=== PATIENT | male | born 1960 | race Caucasian/White ===

== ENCOUNTER 2017-08-18 07:37 | Outpatient (CLI) | payer OTHER ==
--- NOTE | 2017-08-18 18:17 | MRI Report ---
EXAM: MRI LUMBAR SPINE WITHOUT CONTRAST EXAM DATE: 08/18/2017 08:28 AM. CLINICAL HISTORY: Radiculopathy, lumbar region. 57-year-old male with low back pain radiating to the left leg for 6 weeks. Left thigh and christian numbness. COMPARISON: None. TECHNIQUE: Multiplanar, multisequence T1-weighted and fluid-sensitive sequences of the lumbar spine f rom T12 to S1 without contrast. Other: None. FINDINGS: Spinal Cord: The conus terminates at L1. The conus medullaris and cauda equina are unremarkable. Alignment: No scoliosis or spondylolisthesis. Bone Marrow: Five [id number] lumbar vertebral bodies are assumed. S1 vertebral body 2.1 cm heman gioma. Disk Levels/Facets: T12-L1: Unremarkable. L1-L2: Unremarkable. L2-L3: Unremarkable. L3-L4: Left lateral broad 3 mm disk protrusion. Mild ligamentum flavum thickening. Central posterior 2 mm disk protrusion. Mild facet joint arthrosis. Left ventral epidural mid and inferior L3 vertebral body extruded disk fragment, 1.1 cm in transverse dimension, 6 mm in AP dimension and 1.3 cm in heig ht, which extends from the left L3 lateral recess to the left L3-L4 neural foramen entry zone. Imping ement is noted of the left descending L3 nerve root. Compression of the left anterolateral thecal sac without central spinal canal stenosis. Mild right foraminal stenosis. L4-L5: Severe disk degeneration. Left L4 laminectomy. Negative for central spinal canal stenosis. Mod erate bilateral lateral recess stenosis from ligamentum flavum thickening and facet hypertrophy. Mild bilateral foraminal stenosis from a foraminal disk bulge osteophyte complex and disk degeneration. L eft facetectomy. L5-S1: Left laminectomy. Left facetectomy. Negative for left foraminal stenosis. Mild right foraminal stenosis from facet hypertrophy and a 2 mm foraminal disk protrusion osteophyte complex. Mild to mod erate right lateral recess stenosis from facet hypertrophy. Musculature: Normal. No edema or fatty atrophy. Other: The partially visualized retroperitoneum is unremarkable. Cyst measuring 1.8 cm superior pole of right kidney. IMPRESSION: 1. Left L3 lateral recess stenosis, severe left L3-L4 neural foramen entry zone stenosis and impingem ent of the descending left L3 nerve root from cephalad migration to the mid and inferior L3 vertebral body level of a left anterior epidural extruded disk fragment, which measures 1.3 cm in height, 1.1 cm in transverse dimension and 6 mm in AP dimension. Moderate compression of the left anterior latera l thecal sac without central spinal canal stenosis from the extruded disk fragment. 2. Broad left posterolateral 3 mm L3-L4 disk protrusion with a mild left lateral recess stenosis. 3. Moderate bilateral L4-L5 lateral recess stenosis from ligamentum flavum thickening and facet degen erative hypertrophy status post laminectomy. 4. Mild bilateral L4-L5 foraminal stenosis from severe disk degeneration, disk bulge osteophyte compl ex and facet degenerative hypertrophy. 5. Mild to moderate right L5-S1 foraminal stenosis. Comment: The following findings are so common in adults without low back pain that while we report th eir presence, they must be interpreted with caution and in the context of the clinical situation. (Re karthikeyan Tate et al, Spine 2001) Prevalence of findings in patients without low back pain: Disk degeneration (any evidence): 92% Disk desiccation/T2 signal loss: 83% Disk height loss: 56% Disk bulge: 64% Disk protrusion: 32% Annular tear/high intensity zone: 38% [facility] Referring Provider Line: [phone] SITE ID: [id number]
== END 2017-08-18 07:38 | disposition home or self-care (01) ==
LOC: DI 07:37
DX: M51.26 Other intervertebral disc displacement, lumbar region (principal); M47.896 Other spondylosis, lumbar region; M51.36 Other intervertebral disc degeneration, lumbar region; M47.897 Other spondylosis, lumbosacral region
CPT/HCPCS: 72148